=== PATIENT | female | born 1980 | race Caucasian/White ===

== ENCOUNTER 2016-11-25 22:15 | Emergency (ER) | payer MEDICAID ==
[~2016-11-25] VITALS: Ht 165.1 cm; Wt 64.5 kg
[2016-11-25] MEDS ORDERED: SODIUM CHLORIDE 0.9% 1,000 ML IV ONE (22:30)
[2016-11-25 23:01] VITALS: BP 141/99
== END 2016-11-26 00:15 | disposition home or self-care (01) ==
LOC: EMS 22:17
DX: Z02.89 Encounter for other administrative examinations (principal); F15.10 Other stimulant abuse, uncomplicated; F17.210 Nicotine dependence, cigarettes, uncomplicated
CPT/HCPCS: 82962; 99284; J7030

== ENCOUNTER 2016-12-08 10:16 | Emergency (ER) | payer MEDICAID ==
[~2016-12-08] VITALS: Ht 165.1 cm; Wt 68.0 kg
[2016-12-08] MEDS ORDERED: IBUPROFEN 600 MG TABLET PO ONE (12:30)
[2016-12-08 12:31] VITALS: BP 119/64
== END 2016-12-08 12:34 | disposition home or self-care (01) ==
LOC: EMS 10:19
DX: S00.03XA Contusion of scalp, initial encounter (principal); S80.01XA Contusion of right knee, initial encounter; S80.02XA Contusion of left knee, initial encounter; F15.10 Other stimulant abuse, uncomplicated; F17.210 Nicotine dependence, cigarettes, uncomplicated; Y04.2XXA Assault by strike against or bumped into by another person, initial encounter; Y93.89 Activity, other specified; Y92.89 Other specified places as the place of occurrence of the external cause; Y99.8 Other external cause status
CPT/HCPCS: 81025; 99282; 99406

== ENCOUNTER 2017-02-12 14:43 | Inpatient (IN) | payer MEDICAID ==
[~2017-02-12] VITALS: Ht 165.1 cm; Wt 61.4 kg
[2017-02-12 15:23] VITALS: BP 117/70
[2017-02-12] MEDS ORDERED: ZOLPIDEM TARTRATE 10 MG TABLET PO PRN (16:00)
[2017-02-12] MEDS ORDERED: INFLUENZA VIRUS VACCINE QVS 2017-18 (3YR+)/PF 60 MCG/0.5 ML SYRINGE IM ONE (16:00)
[2017-02-12 16:54] VITALS: BP 120/79
[2017-02-12] MEDS ORDERED: IBUPROFEN 600 MG TABLET PO PRN (17:45)
[2017-02-12] MEDS ORDERED: ACETAMINOPHEN 325 MG TABLET PO PRN (17:45)
[2017-02-12] MEDS: HALOPERIDOL 5 MG TABLET PO PRN (18:00)
[2017-02-12] MEDS: LORazepam 2 MG TABLET PO PRN (18:00)
[2017-02-13 04:03] VITALS: BP 125/76
[2017-02-13 08:05] LABS: BASOPHILS # (AUTO) 0.11 K/uL (0.00-0.20); BASOPHILS % (AUTO) 1.3 % (0.0-2.0); EOSINOPHILS # (AUTO) 0.35 K/uL (0.00-0.70); EOSINOPHILS % (AUTO) 4.15 % (1.0-6.0); HEMATOCRIT 37.6 % (36-46); HEMOGLOBIN 12.5 g/dL (12.0-16.0); LYMPHOCYTES # (AUTO) 1.6 K/uL (1.0-4.8); LYMPHOCYTES % (AUTO) 19.1 % (22.0-44.0); MEAN CORPUSCULAR HEMOGLOBIN 30.2 pg (26.0-34.0); MEAN CORPUSCULAR HGB CONC 33.3 G/dL (31.0-37.0); MEAN CORPUSCULAR VOLUME 91 fL (80-100); MONOCYTES # (AUTO) 0.8 K/uL (0.1-1.0); MONOCYTES % (AUTO) 9.9 % (2.0-9.0); NEUTROPHILS # (AUTO) 5.5 K/uL (1.8-7.7); NEUTROPHILS % (AUTO) 65.6 % (40.0-70.0); PLATELET COUNT (AUTO) 350 K/uL (150-450); RED BLOOD CELL COUNT(AUTO) 4.15 MIL/uL (4.00-5.20); RED CELL DISTRIBUTION WIDTH 13.9 % (11.5-14.5); WHITE BLOOD COUNT (AUTO) 8.4 K/uL (4.5-11.0)
[2017-02-13 09:00] LABS: HEMOGLOBIN A1C 5.6 % (4.5-6.2)
[2017-02-13 10:09] LABS: ALANINE AMINOTRANSFERASE 29 U/L (12-78); ALBUMIN 2.9 g/dL (3.4-5.0); ANION GAP 6 mmol/L (8-16); ASPARTATE AMINOTRANSFERASE 21 U/L (15-37); BILIRUBIN,TOTAL 0.5 mg/dL (0.1-1.0); CALCIUM, TOTAL 8.4 mg/dL (8.8-10.5); CARBON DIOXIDE 27 mmol/L (22-29); CHLORIDE 106 mmol/L (98-107); CREATININE 0.72 mg/dL (0.60-1.30); GLOMERULAR FILTR. RATE CALC > 60 mL/min (>60); POTASSIUM 3.9 mmol/L (3.5-5.1); SODIUM SERUM 139 mmol/L (136-145); THYROID STIMULATING HORMONE 1.88 uIU/mL (0.36-3.74); TOTAL PROTEIN, SERUM 6.5 g/dL (6.4-8.2); UREA NITROGEN, BLOOD 10 mg/dL (7-18)
[2017-02-13 10:18] LABS: APPEARANCE,URINE CLOUDY (CLEAR); GLUCOSE, URINE (UA) NEGATIVE (NEGATIVE); KETONES,URINE NEGATIVE (NEGATIVE); LEUKOCYTE ESTERASE ,URINE LARGE (NEGATIVE); OCCULT BLOOD,URINE TRACE (NEGATIVE); PROTEIN,URINE NEGATIVE (NEGATIVE)
[2017-02-13 11:22] LABS: ADD UA MICROSCOPIC YES
[2017-02-13 11:23] LABS: RBC,URINE 0-2 /HPF (0-2)
[2017-02-13 11:24] LABS: SQUAMOUS EPITHELIAL CELL,UR Many /LPF (None Seen); WBC,URINE 26-50 /HPF (0-5)
[2017-02-13 11:25] LABS: CALCIUM OXALATE CRYSTALS,UR Many /LPF (None Seen)
[2017-02-13] MEDS: ARIPiprazole 5 MG TABLET PO SCH (12:38)
[2017-02-13] MEDS: FLUoxetine HCL 20 MG CAPSULE PO SCH (12:38)
[2017-02-13 16:00] VITALS: BP 112/72
[2017-02-13] MEDS: NITROFURANTOIN/NITROFURAN MAC 100 MG CAPSULE [MACROBID] PO SCH (16:53)
[2017-02-13] MEDS: LORazepam 2 MG TABLET PO PRN (16:53)
[2017-02-14 07:10] VITALS: BP 119/72
[2017-02-14 08:28] VITALS: BP 114/68
[2017-02-14] MEDS: ARIPiprazole 5 MG TABLET PO SCH (09:50)
[2017-02-14] MEDS: NITROFURANTOIN/NITROFURAN MAC 100 MG CAPSULE [MACROBID] PO SCH ×2 (09:50→16:18)
[2017-02-14] MEDS: FLUoxetine HCL 20 MG CAPSULE PO SCH (09:50)
[2017-02-14] MEDS: LORazepam 2 MG TABLET PO PRN (16:18)
[2017-02-14] MEDS: HALOPERIDOL 5 MG TABLET PO PRN (16:18)
[2017-02-15 08:12] VITALS: BP 110/64
[2017-02-15] MEDS: ARIPiprazole 5 MG TABLET PO SCH (09:36)
[2017-02-15] MEDS: FLUoxetine HCL 20 MG CAPSULE PO SCH (09:36)
[2017-02-15] MEDS: NITROFURANTOIN/NITROFURAN MAC 100 MG CAPSULE [MACROBID] PO SCH ×2 (09:36→16:36)
[2017-02-15 16:15] VITALS: BP 109/68
[2017-02-15] MEDS: HALOPERIDOL 5 MG TABLET PO PRN (16:36)
[2017-02-15] MEDS: LORazepam 2 MG TABLET PO PRN (16:36)
[2017-02-16 08:30] VITALS: BP 115/66
[2017-02-16] MEDS: NITROFURANTOIN/NITROFURAN MAC 100 MG CAPSULE [MACROBID] PO SCH ×2 (09:43→16:27)
[2017-02-16] MEDS: FLUoxetine HCL 20 MG CAPSULE PO SCH (09:43)
[2017-02-16] MEDS: ARIPiprazole 5 MG TABLET PO SCH (09:43)
[2017-02-16] MEDS: LORazepam 2 MG TABLET PO PRN (16:27)
[2017-02-16 16:53] VITALS: BP 105/87
[2017-02-17] MEDS: FLUoxetine HCL 20 MG CAPSULE PO SCH (09:14)
[2017-02-17] MEDS: ARIPiprazole 10 MG TABLET PO SCH (09:14)
[2017-02-17] MEDS: NITROFURANTOIN/NITROFURAN MAC 100 MG CAPSULE [MACROBID] PO SCH ×2 (09:14→17:25)
[2017-02-17] MEDS: LORazepam 2 MG TABLET PO PRN ×2 (10:23→17:25)
[2017-02-17 12:00] VITALS: BP 105/67
[2017-02-17 12:15] VITALS: BP 105/67
[2017-02-17 16:19] VITALS: BP 105/70
[2017-02-17] MEDS: HALOPERIDOL 5 MG TABLET PO PRN (17:25)
[2017-02-18 06:07] VITALS: BP 108/75
[2017-02-18 09:08] VITALS: BP 111/83
[2017-02-18] MEDS: NITROFURANTOIN/NITROFURAN MAC 100 MG CAPSULE [MACROBID] PO SCH (09:21)
[2017-02-18] MEDS: FLUoxetine HCL 20 MG CAPSULE PO SCH (09:21)
[2017-02-18] MEDS: ARIPiprazole 10 MG TABLET PO SCH (09:21)
[2017-02-18 16:13] VITALS: BP 105/67
[2017-02-19 07:11] VITALS: BP 115/73
[2017-02-19 08:00] VITALS: BP 112/68
[2017-02-19] MEDS: ARIPiprazole 10 MG TABLET PO SCH (08:20)
[2017-02-19] MEDS: FLUoxetine HCL 20 MG CAPSULE PO SCH (08:20)
[2017-02-19] MEDS: HALOPERIDOL 5 MG TABLET PO PRN (16:13)
[2017-02-19] MEDS: LORazepam 2 MG TABLET PO PRN (16:13)
[2017-02-19 16:43] VITALS: BP 127/67
[2017-02-19] MEDS ORDERED: FLUoxetine HCL 20 MG CAPSULE PO ONE (17:00)
[2017-02-20 07:20] VITALS: BP 110/62
[2017-02-20] MEDS ORDERED: FLUoxetine HCL 20 MG CAPSULE PO SCH (09:00)
[2017-02-20] MEDS: ARIPiprazole 10 MG TABLET PO SCH (09:07)
[2017-02-20] MEDS ORDERED: ARIP10TA8 PO ×2 (10:26→10:30)
[2017-02-20] MEDS ORDERED: FLUO40CA7 PO (10:30)
== END 2017-02-20 13:05 | disposition home or self-care (01) | DRG 751 ==
LOC: B3A 15:59
PROVIDERS: ADMIT Family Medicine; ATTEND Psychiatry & Neurology Psychiatry
DX: F33.2 Major depressive disorder, recurrent severe without psychotic features (principal); R45.851 Suicidal ideations; F22 Delusional disorders; B19.20 Unspecified viral hepatitis C without hepatic coma; F15.90 Other stimulant use, unspecified, uncomplicated; F41.9 Anxiety disorder, unspecified; B96.20 Unspecified Escherichia coli [E. coli] as the cause of diseases classified elsewhere; N39.0 Urinary tract infection, site not specified; Z59.0 Homelessness; Z79.899 Other long term (current) drug therapy; Z28.21 Immunization not carried out because of patient refusal
CPT/HCPCS: 80307; 83036; 84439; 84443; 87086; 90471

== ENCOUNTER 2017-03-21 23:28 | Inpatient (IN) | payer MEDICAID ==
[~2017-03-21] VITALS: Ht 165.1 cm; Wt 58.1 kg
[~2017-03-21 23:28] MED LIST: ARIP10TA8 PO; FLUO40CA7 PO
[2017-03-21 23:53] LABS: BASOPHILS # (AUTO) 0.13 K/uL (0.00-0.20); BASOPHILS % (AUTO) 1.4 % (0.0-2.0); EOSINOPHILS # (AUTO) 0.13 K/uL (0.00-0.70); EOSINOPHILS % (AUTO) 1.43 % (1.0-6.0); HEMATOCRIT 36.2 % (36-46); LYMPHOCYTES # (AUTO) 2.1 K/uL (1.0-4.8); LYMPHOCYTES % (AUTO) 23.6 % (22.0-44.0); MEAN CORPUSCULAR HEMOGLOBIN 29.5 pg (26.0-34.0); MEAN CORPUSCULAR VOLUME 89 fL (80-100); MONOCYTES # (AUTO) 0.9 K/uL (0.1-1.0); MONOCYTES % (AUTO) 10.2 % (2.0-9.0); NEUTROPHILS # (AUTO) 5.6 K/uL (1.8-7.7); NEUTROPHILS % (AUTO) 63.4 % (40.0-70.0); PLATELET COUNT (AUTO) 386 K/uL (150-450); RED BLOOD CELL COUNT(AUTO) 4.06 MIL/uL (4.00-5.20); RED CELL DISTRIBUTION WIDTH 13.6 % (11.5-14.5); WHITE BLOOD COUNT (AUTO) 8.9 K/uL (4.5-11.0)
[2017-03-22 00:09] LABS: ANION GAP 9 mmol/L (8-16); CALCIUM, TOTAL 8.7 mg/dL (8.8-10.5); CARBON DIOXIDE 26 mmol/L (22-29); CHLORIDE 106 mmol/L (98-107); CREATININE 0.95 mg/dL (0.60-1.30); GLOMERULAR FILTR. RATE CALC > 60 mL/min (>60); POTASSIUM 3.9 mmol/L (3.5-5.1); SODIUM SERUM 141 mmol/L (136-145); UREA NITROGEN, BLOOD 22 mg/dL (7-18)
[2017-03-22 00:15] LABS: ALANINE AMINOTRANSFERASE 33 U/L (12-78); ALBUMIN 3.5 g/dL (3.4-5.0); ASPARTATE AMINOTRANSFERASE 23 U/L (15-37); BILIRUBIN,TOTAL 0.4 mg/dL (0.1-1.0); TOTAL PROTEIN, SERUM 7.2 g/dL (6.4-8.2)
[2017-03-22] MEDS ORDERED: LORazepam 2 MG/ML VIAL IM ONE (00:30)
[2017-03-22] MEDS ORDERED: HALOPERIDOL LACTATE 5 MG/ML VIAL IM ONE (00:30)
[2017-03-22] MEDS ORDERED: DiphenhydrAMINE HCL 50 MG/ML VIAL IM ONE (00:30)
[2017-03-22] MEDS ORDERED: HALOPERIDOL 5 MG TABLET PO PRN (01:15)
[2017-03-22] MEDS ORDERED: ZOLPIDEM TARTRATE 10 MG TABLET PO PRN (01:15)
[2017-03-22 12:40] LABS: GLUCOSE, URINE (UA) NEGATIVE (NEGATIVE); KETONES,URINE NEGATIVE (NEGATIVE); LEUKOCYTE ESTERASE ,URINE SMALL (NEGATIVE); OCCULT BLOOD,URINE NEGATIVE (NEGATIVE); PROTEIN,URINE NEGATIVE (NEGATIVE)
[2017-03-22 12:46] LABS: ADD UA MICROSCOPIC YES; APPEARANCE,URINE HAZY (CLEAR); RBC,URINE None Seen /HPF (0-2)
[2017-03-22 12:47] LABS: RENAL EPITHELIAL CELLS,URINE Rare /LPF (None Seen); SQUAMOUS EPITHELIAL CELL,UR Few /LPF (None Seen)
[2017-03-22 14:43] VITALS: BP 104/60
[2017-03-22 16:00] VITALS: BP 120/68
[2017-03-22] MEDS ORDERED: INFLUENZA VIRUS VACCINE QVS 2017-18 (3YR+)/PF 60 MCG/0.5 ML SYRINGE IM ONE (16:30)
[2017-03-23 06:51] VITALS: BP 143/65
[2017-03-23] MEDS ORDERED: PETROLATUM,WHITE 71 GM JELLY TP PRN (08:30)
[2017-03-23] MEDS ORDERED: ONDANSETRON HCL 4 MG TABLET PO PRN (08:30)
[2017-03-23] MEDS ORDERED: LOPERAMIDE HCL 2 MG CAPSULE PO PRN (08:30)
[2017-03-23] MEDS ORDERED: IBUPROFEN 600 MG TABLET PO PRN (08:30)
[2017-03-23] MEDS ORDERED: ACETAMINOPHEN 325 MG TABLET PO PRN (08:30)
[2017-03-23] MEDS ORDERED: ALBUTEROL SULFATE HFA 90 MCG/PUFF 8 GM INHALER IH PRN (08:30)
[2017-03-23] MEDS ORDERED: BENZOCAINE/MENTHOL LOZENGE MM PRN (08:30)
[2017-03-23] MEDS ORDERED: MAGNESIUM HYDROXIDE SUSPENSION 30 ML UDCUP PO PRN (08:30)
[2017-03-23] MEDS ORDERED: CloNIDine HCL 0.1 MG TABLET PO PRN (08:30)
[2017-03-23] MEDS ORDERED: BACITRACIN 28.4 GM OINTMENT TP PRN (08:30)
[2017-03-23] MEDS ORDERED: MAG HYDROX/AL HYDROX/SIMETH ES 30 ML SUSPENSION UDCUP PO PRN (08:30)
[2017-03-23 08:37] LABS: CHOL/HDL RATIO 2.2 (3.9-5.7)
[2017-03-23] MEDS: LORazepam 2 MG TABLET PO PRN ×2 (09:04→16:30)
[2017-03-23] MEDS: FLUoxetine HCL 20 MG CAPSULE PO SCH (09:37)
[2017-03-23] MEDS: ARIPiprazole 10 MG TABLET PO SCH (09:43)
[2017-03-23 16:48] VITALS: BP 106/64
[2017-03-24 08:03] VITALS: BP 114/60
[2017-03-24] MEDS: FLUoxetine HCL 20 MG CAPSULE PO SCH (09:13)
[2017-03-24 09:14] LABS: CHOL/HDL RATIO 2.4 (3.9-5.7); THYROID STIMULATING HORMONE 0.94 uIU/mL (0.36-3.74)
[2017-03-24] MEDS: ARIPiprazole 10 MG TABLET PO SCH (09:16)
[2017-03-24] MEDS: LORazepam 2 MG TABLET PO PRN (11:51)
[2017-03-24 16:06] VITALS: BP 114/69
[2017-03-24] MEDS: NITROFURANTOIN/NITROFURAN MAC 100 MG CAPSULE [MACROBID] PO SCH (20:20)
[2017-03-25 06:34] VITALS: BP 119/71
[2017-03-25] MEDS: LORazepam 2 MG TABLET PO PRN (07:18)
[2017-03-25] MEDS: ARIPiprazole 10 MG TABLET PO SCH (08:28)
[2017-03-25] MEDS: NITROFURANTOIN/NITROFURAN MAC 100 MG CAPSULE [MACROBID] PO SCH ×2 (08:28→16:15)
[2017-03-25] MEDS: FLUoxetine HCL 20 MG CAPSULE PO SCH (08:30)
[2017-03-25 08:40] VITALS: BP 118/71
[2017-03-25 16:05] VITALS: BP 101/60
[2017-03-26 06:23] VITALS: BP 100/63
[2017-03-26] MEDS: LORazepam 2 MG TABLET PO PRN ×2 (08:17→16:11)
[2017-03-26] MEDS: ARIPiprazole 10 MG TABLET PO SCH (08:17)
[2017-03-26] MEDS: NITROFURANTOIN/NITROFURAN MAC 100 MG CAPSULE [MACROBID] PO SCH ×2 (08:17→16:11)
[2017-03-26] MEDS: FLUoxetine HCL 20 MG CAPSULE PO SCH (08:17)
[2017-03-26 08:30] VITALS: BP 112/61
[2017-03-26] MEDS ORDERED: ARIPiprazole 5 MG TABLET PO ONE (11:00)
[2017-03-26 17:05] VITALS: BP 106/68
[2017-03-27 05:38] VITALS: BP 102/70
[2017-03-27 08:06] VITALS: BP 118/61
[2017-03-27] MEDS: NITROFURANTOIN/NITROFURAN MAC 100 MG CAPSULE [MACROBID] PO SCH ×2 (08:40→17:11)
[2017-03-27] MEDS: ARIPiprazole 15 MG TABLET PO SCH (08:40)
[2017-03-27] MEDS: FLUoxetine HCL 20 MG CAPSULE PO SCH (08:40)
[2017-03-27] MEDS: LORazepam 2 MG TABLET PO PRN ×2 (08:40→13:58)
[2017-03-27 16:15] VITALS: BP 106/66
[2017-03-28 06:34] VITALS: BP 109/70
[2017-03-28 09:00] VITALS: BP 109/70
[2017-03-28] MEDS: NITROFURANTOIN/NITROFURAN MAC 100 MG CAPSULE [MACROBID] PO SCH ×2 (09:19→16:01)
[2017-03-28] MEDS: ARIPiprazole 15 MG TABLET PO SCH (09:19)
[2017-03-28] MEDS: FLUoxetine HCL 20 MG CAPSULE PO SCH (09:22)
[2017-03-28] MEDS ORDERED: MACR100 PO (12:08)
[2017-03-28] MEDS: LORazepam 2 MG TABLET PO PRN (14:53)
[2017-03-28 16:40] VITALS: BP 103/66
[2017-03-29 04:30] VITALS: BP 112/63
[2017-03-29 08:15] VITALS: BP 98/63
[2017-03-29] MEDS: LORazepam 2 MG TABLET PO PRN (09:03)
[2017-03-29] MEDS: ARIPiprazole 15 MG TABLET PO SCH (09:03)
[2017-03-29] MEDS: NITROFURANTOIN/NITROFURAN MAC 100 MG CAPSULE [MACROBID] PO SCH (09:03)
[2017-03-29] MEDS: FLUoxetine HCL 20 MG CAPSULE PO SCH (09:03)
== END 2017-03-29 13:30 | disposition home or self-care (01) | DRG 750 ==
LOC: EMS 23:29 → B3A 03-22 13:10
DX: F20.0 Paranoid schizophrenia (principal); R45.851 Suicidal ideations; Z59.0 Homelessness; I10 Essential (primary) hypertension; F14.10 Cocaine abuse, uncomplicated; F17.210 Nicotine dependence, cigarettes, uncomplicated; F15.10 Other stimulant abuse, uncomplicated; G47.00 Insomnia, unspecified; M54.5 Low back pain; F41.9 Anxiety disorder, unspecified; F12.10 Cannabis abuse, uncomplicated; F10.10 Alcohol abuse, uncomplicated; N39.0 Urinary tract infection, site not specified; Z71.6 Tobacco abuse counseling; Z79.899 Other long term (current) drug therapy; Z91.5 Personal history of self-harm
CPT/HCPCS: 82306; 84443; 90471; 96372; 99285; 99406; G0480; J1200; J1630; J2060

== ENCOUNTER 2021-09-19 00:46 | Emergency (ER) | payer MEDICAID ==
[~2021-09-19] VITALS: Ht 165.1 cm; Wt 81.8 kg
[~2021-09-19 00:46] MED LIST changes: +ARIP10TA38 PO; -ARIP10TA8 PO; +NITR-75 PO
[2021-09-19 04:35] VITALS: BP 123/69
[2021-09-19] MEDS ORDERED: IBUP-2070 PO (04:35)
[2021-09-19] MEDS ORDERED: IBUPROFEN 600 MG TABLET PO ONE (04:45)
== END 2021-09-19 05:47 | disposition home or self-care (01) ==
LOC: EMS 00:47
DX: S46.001A Unspecified injury of muscle(s) and tendon(s) of the rotator cuff of right shoulder, initial encounter (principal); F20.9 Schizophrenia, unspecified; F17.210 Nicotine dependence, cigarettes, uncomplicated; Z87.39 Personal history of other diseases of the musculoskeletal system and connective tissue; X50.9XXA Other and unspecified overexertion or strenuous movements or postures, initial encounter; Y93.89 Activity, other specified; Y92.89 Other specified places as the place of occurrence of the external cause; Y99.8 Other external cause status
CPT/HCPCS: 99283